=== PATIENT | male | born 1945 | race Caucasian/White ===

== ENCOUNTER 2017-08-29 16:15 | Outpatient (CLI) | payer MEDICARE | END 2017-08-29 16:16 | disposition critical access hospital (66) | LOC: EMS 16:15 | PROVIDERS: ATTEND Surgery | DX: R41.82 Altered mental status, unspecified (principal); R03.0 Elevated blood-pressure reading, without diagnosis of hypertension | CPT/HCPCS: A0425; A0427 ==

== ENCOUNTER 2017-08-29 16:30 | Inpatient (IN) | payer MEDICARE, OTHER ==
[2017-08-29 16:48] LABS: BILIRUBIN,URINE NEGATIVE (NEGATIVE); GLUCOSE, URINE (UA) NEGATIVE (NEGATIVE); KETONES,URINE (UA) NEGATIVE (NEGATIVE); LEUKOCYTE ESTERASE, URINE NEGATIVE (NEGATIVE); NITRITE,URINE NEGATIVE (NEGATIVE); OCCULT BLOOD,URINE NEGATIVE (NEGATIVE); PROTEIN,URINE NEGATIVE (NEGATIVE); UROBILINOGEN,URINE 0.2 (NORMAL) E.U./dL (NORMAL)
[2017-08-29 16:51] LABS: CLARITY,URINE CLEAR (CLEAR)
--- NOTE | 2017-08-29 16:56 | ED Physician Documentation ---
PD HPI FOCAL NEURO - Stated complaint Stated Complaint: ALOC - Chief complaint Chief Complaint: Neuro - History obtained from History obtained from: Patient, Family, EMS - History of Present Illness Timing - onset: Today (72-year-old gentleman with uncontrolled hypertension has never taken blood pressure medicines by choice. He had a history of what sounds like an episode of transient global amnesia in [place] about 15 years ago. Today after a stressful meeting he basically completely and acutely lost his memory. He has no specific complaints other than being kind of scared and not knowing where he is.) Review of Systems Ten Systems: 10 systems reviewed and negative Constitutional: denies: Fever, Chills Cardiac: denies: Chest pain / pressure, Palpitations Respiratory: denies: Dyspnea, Cough PD PAST MEDICAL HISTORY - Past Medical History Past Medical History: Yes Cardiovascular: Hypertension (Not taking any meds for) - Present Medications Home Medications: Ambulatory Orders Medication Instructions Recorded Confirmed No Known Home Medications [No 08/29/17 08/29/17 Known Home Medications] - Allergies Allergies/Adverse Reactions: Allergies Allergy/AdvReac Type Severity Reaction Status Date / Time No Known Drug Allergies Allergy Verified 08/29/17 16:40 - Social History Does the pt smoke?: No Does the pt drink ETOH?: Yes Does the pt have substance abuse?: No - Family History Family history: reports: Non contributory PD ED PE NORMAL - Vitals Vital signs reviewed: Yes - General General: Alert and oriented X 3 (He is actually alert and oriented knows the date but is a little fuzzy on why he is here. He can remember that he had eggs for breakfast and knows his address. 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 Eye Opening: Spontaneous Motor: Obeys Commands Verbal: Oriented GCS Score: 15 - Psych Psych: Normal mood, Normal affect NIHSS - Time Time: 16:45 - Level of Consciousness Level of consciousness: (0) Alert, Keenly responsive LOC Questions: (0) Answers both Q's correct LOC Commands: (0) Performs both correctly - Gaze Best Gaze: (0) Normal - Visual Visual: (0) No loss - Facial Palsy Facial Palsy: (0) Normal, symmetrical movement - Motor Arms (both separate) Motor Arm (right): (0) No drift Motor Arm (left): (0) No drift - Motor Legs (both separate) Motor Leg (right): (0) No drift Motor Leg (left): (0) No drift - Limb Ataxia Limb Ataxia: (0) Absent - Sensory Sensory: (0) Normal - Best Language Best Language: (0) No aphasia - Dysarthria Dysarthria: (0) Normal - Extinction and Inattention (formally neg Extinction and inattention: (0) No abnormality - Total Score/Results Total Score/Result: 0 Results - Vitals Vitals: Vital Signs - 24 hr 08/29/17 16:35 Temperature 36.5 C Heart Rate 64 Respiratory 18 Rate Blood Pressure 226/105 H O2 Saturation 100 Oxygen O2 Source Room air - EKG (time done) 1748 Rate: Rate (enter#) (60) Rhythm: NSR Cobb: Normal Intervals: Normal AL QRS: Normal Ischemia: Normal ST segments Computer interpretation: Agree with computer - Labs Labs: Laboratory Tests 08/29/17 08/29/17 08/29/17 14:50 17:24 17:24 WBC 7.3 RBC 5.56 Hgb 16.9 Hct 51.6 MCV 92.8 MCH 30.4 MCHC 32.7 RDW 13.0 Plt Count 211 MPV 9.0 Neut # (Auto) 5.3 Lymph # (Auto) 1.2 L [place] # (Auto) 0.7 Eos # (Auto) 0.1 Baso # (Auto) 0.1 Absolute Nucleated RBC 0.00 Nucleated RBC % 0.0 Sodium 138 Potassium 3.6 Chloride 103 Carbon Dioxide 27 Anion Gap 8.0 BUN 13 Creatinine 1.2 Estimated GFR (MDRD) 60 L Glucose 105 H Calcium 9.0 Total Bilirubin 0.8 AST 20 ALT 18 Alkaline Phosphatase 61 Total Protein 7.0 Albumin 4.2 Globulin 2.8 Albumin/Globulin Ratio 1.5 Lipase 25 Urine Color LT. YELLOW Urine Clarity CLEAR Urine pH 7.0 Ur Specific Purlear 1.015 Urine Protein NEGATIVE Urine Glucose (UA) NEGATIVE Urine Ketones NEGATIVE Urine Occult Blood NEGATIVE Urine Nitrite NEGATIVE Urine Bilirubin NEGATIVE Urine Urobilinogen 0.2 (NORMAL) Ur Leukocyte Esterase NEGATIVE Ur Microscopic Review NOT INDICATED Urine Culture Comments NOT INDICATED - Rads (name of study) CT Head Radiology: EMP read contemporaneously (normal) PD MEDICAL DECISION MAKING - ED course ED course: 72-year-old gentleman who presents with a history and physical examination consistent with Transient global amnesia. He had a normal head CT and unremarkable labs here. He did agree to take some blood pressure medicine and was started on lisinopril. His stroke scale is negative but he was persistently having memory difficulties in the department and did not know why he was here. Call the hospitalist for observation at 6:10 PM. - Sepsis Event Vital Signs: Vital Signs - 24 hr 08/29/17 16:35 Temperature 36.5 C Heart Rate 64 Respiratory 18 Rate Blood Pressure 226/105 H O2 Saturation 100 Oxygen O2 Source Room air Departure - Departure Disposition: ED Place in Observation Clinical Impression: Transient global amnesia Condition: Stable
[2017-08-29 17:32] LABS: BASOPHILS # (AUTO) 0.1 10^3/uL (0.0-0.1); BASOPHILS % (AUTO) 1.1 %; EOSINOPHILS # (AUTO) 0.1 10^3/uL (0.0-0.7); EOSINOPHILS % (AUTO) 0.9 %; HGB - HEMOGLOBIN 16.9 g/dL (14.0-18.0); LYMPHOCYTES # (AUTO) 1.2 10^3/uL (1.5-3.5); LYMPHOCYTES % (AUTO) 16.5 %; MEAN CORPUSCULAR HEMOGLOBIN 30.4 pg (27.0-31.0); MEAN CORPUSCULAR HGB CONC 32.7 g/dL (32.0-36.0); MEAN CORPUSCULAR VOLUME 92.8 fL (80.0-94.0); MONOCYTES # (AUTO) 0.7 10^3/uL (0.0-1.0); NEUTROPHILS # (AUTO) 5.3 10^3/uL (1.5-6.6); NEUTROPHILS % (AUTO) 72.5 %; PLT - PLATELET COUNT 211 10^3/uL (130-450); RED BLOOD COUNT 5.56 10^6/uL (4.70-6.10); WHITE BLOOD COUNT 7.3 x10^3/uL (4.8-10.8)
[2017-08-29 17:44] LABS: ALBUMIN 4.2 g/dL (3.2-5.5); ALBUMIN/GLOBULIN RATIO 1.5 (1.0-2.2); BILIRUBIN,TOTAL 0.8 mg/dL (0.2-1.0); CREATININE 1.2 mg/dL (0.6-1.2)
--- NOTE | 2017-08-29 17:54 | CT Report ---
Procedure Date: 08/29/2017 Accession Number: [id number] / [id number] Procedure: CT - Head W/O CPT Code: FULL RESULT: EXAM: CT HEAD EXAM DATE: 08/29/2017 05:34 PM. CLINICAL HISTORY: Confusion COMPARISON: None. TECHNIQUE: Multiaxial CT images were obtained from the foramen magnum to the vertex. Reformats: Coronal. IV contrast: None. In accordance with CT protocol optimization, one or more of the following dose reduction techniques were utilized for this exam: automated exposure control, adjustment of mA and/or KV based on patient size, or use of iterative reconstructive technique. FINDINGS: Parenchyma: No intraparenchymal hemorrhage. No evidence of mass, midline shift, or CT findings of infarction. Garcia-white differentiation is distinct. Extraaxial Spaces: Normal for age. No subdural or epidural collections identified. Ventricles: Normal in size and position. Sinuses and Orbits: Imaged paranasal sinuses, orbits, and mastoids show no significant abnormality. Bones: No evidence of fracture or calvarial defect. Other: None. IMPRESSION: No acute intracranial CT abnormality. RADIA
[2017-08-29] MEDS ORDERED: LISINOPRIL 5 MG TABLET PO STA (18:07)
[2017-08-29] MEDS ORDERED: ACETAMINOPHEN 325 MG TABLET PO PRN (19:53)
[2017-08-29] MEDS ORDERED: SODIUM CHLORIDE FLUSH 0.9% 10 ML SYRINGE IVP PRN (19:53)
[2017-08-29] MEDS ORDERED: amLODIPine 5 MG TABLET PO STA (19:58)
[2017-08-29] MEDS: D5.45NS W/20 MEQ KCL 1,000 ML IV SCH (21:32)
[2017-08-29] MEDS: SODIUM CHLORIDE FLUSH 0.9% 10 ML SYRINGE IVP SCH (21:32)
--- NOTE | 2017-08-29 22:50 | HISTORY & PHYSICAL EXAMINATION ---
Chief Complaint - Chief Complaint Chief Complaint: Altered level of consciousness History of Present Illness - Admitted From Admitted From:: Home - History Obtained From History obtained from: Patient, patient's , ED physician Exam Limitations: Patient has very poor memory of the last few hours - History of Present Illness HPI Comment/Other: Mr. 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 Of note is that the patient has a long-standing history of hypertension but refuses to take any antihypertensive medications. Today he was having a very important conference call when he began to show signs of altered level of consciousness. His notes that 15 years ago he had a similar incident during a very high stress period of his life and was diagnosed with transient global amnesia at that time. Today the patient says he feels like he is having a dream and has very little memory of the preceding 3 or 4 hours. His notes that he does not remember that she broke her toe a couple of months ago. He is otherwise oriented to person place and time. A CAT scan of his brain was negative for any acute pathology and there are not any significant findings in the patient's lab data thus far. We will admit him to medical surgical bed, place him on telemetry , correct any electrolyte abnormalities, and obtain an echocardiogram, carotid ultrasound, and MRI of his brain tomorrow. History - Past Medical History Cardiovascular: reports: Hypertension Respiratory: reports: None Neuro: reports: Other Endocrine/Autoimmune: reports: None GI: reports: GERD : reports: None HEENT: reports: None Psych: reports: None Musculoskeletal: reports: None Derm: reports: None MRSA Hx?: No Other Past Medical History: TGA, seasonal allergies - Past Surgical History General: reports: Appendectomy HEENT: reports: Tonsil/Adenoidectomy - Family & Social History Family History: Mother: , Alzheimer's Disease (age 93), Father: , Cancer (Father of lung cancer at age 72. Brother at age 67 of multiple myeloma), Brother: , Cancer Living arrangement: At home Living Situation: With spouse/s.o. - Substance History Use: Uses substance without health or social issues: Alcohol Abuse: Recurrent use of substance despite neg consequences: NONE Dependence: Experiences withdrawal or developed tolerances: NONE - POLST Patient has POLST: Yes POLST Status: DNR Meds/Allgy - Home Medications Home Medications: Ambulatory Orders Medication Instructions Recorded Confirmed Cyanocobalamin (Vitamin B-12) 500 mcg PO DAILY 08/29/17 08/29/17 [Vitamin B-12] Omeprazole 20 mg PO 08/29/17 - Allergies Allergies/Adverse Reactions: Allergies Allergy/AdvReac Type Severity Reaction Status Date / Time No Known Drug Allergies Allergy Verified 08/29/17 16:40 Review of Systems - Constitutional Constitutional: denies: Fatigue, Fever, Chills, Weakness, Night sweats - Eyes Eyes: denies: Pain, Irritation, Amaurosis, Blurred vision - Ears, Nose & Throat Ears, Nose & Throat: denies: Ear pain, Hearing loss, Hearing aids, Tinnitus, Vertigo, Nasal pain, Nasal discharge, Nosebleeds - Cardiovascular Cariovascular: denies: Palpitations, Chest pain, Edema, Syncope - Respiratory Respiratory: denies: Cough, Sputum production, Wheezing, Snoring, Orthopnea - Gastrointestinal Gastrointestinal: denies: Abdominal pain, Abdominal distention, Constipation, Diarrhea, Change in bowel habits, Rectal bleeding - Genitourinary Genitourinary: denies: Dysuria, Frequency, Urgency - Musculoskeletal Musculoskeletal: denies: Muscle pain, Back pain, Muscle aches, Stiffness - Integumentary Integumentary: denies: Rash, Pruritis, Lesions, Dryness - Neurological Neurological: reports: Memory problems. denies: General weakness, Focal weakness, Headache, Dizziness - Psychiatric Psychiatric: denies: Depression, Anxiety, Suicidal, Hallucinations - Endocrine Endocrine: denies: Polyuria, Polydypsia, Polyphagia - Hematologic/Lymphatic Hematologic/Lymphatic: denies: Anemia, Bruising, Petechiae, Lymphadenopathy - All Other Systems All Other Systems: reports: Reviewed and negative Exam - Vital Signs Reviewed Vital Signs: Yes Vital Signs: Vital Signs x48h Temp Pulse Pulse Resp BP BP Pulse Ox 08/29/17 22:23 69 169/101 H 08/29/17 20:45 37 C 66 20 194/91 H 97 08/29/17 20:37 72 21 171/116 H 93 08/29/17 20:11 69 15 190/107 H 94 08/29/17 20:00 74 12 207/103 H 97 - Physical Exam General Appearance: positive: Alert, Mild distress Eyes Bilateral: positive: Normal inspection, PERRL, EOMI, No lid inflammation, Conjunctivae nml, No scleral icterus ENT: positive: ENT inspection nml, Pharynx nml, No signs of dehydration Neck: positive: Nml inspection, Thyroid nml, No JVD, Trachea midline. negative : Thyromegaly Respiratory: positive: Chest non-tender, No respiratory distress, Breath sounds nml. negative: Wheezes, Rales, Rhonchi Cardiovascular: positive: Regular rate & rhythm, No murmur, No gallop Peripheral Pulses: positive: 1+ Abdomen: positive: Non-tender, No organomegaly, Nml bowel sounds, No distention. negative: Guarding, Rebound Back: positive: Nml inspection. negative: CVA tenderness (R), CVA tenderness (L ) Skin: positive: Color nml, No rash, Warm, Dry. negative: Cyanosis Extremities: positive: Non-tender, Full ROM, Nml appearance, No pedal edema Neurologic/Psychiatric: positive: Oriented x3, CN's nml (2-12), Motor nml, Sensation nml, Mood/affect nml Conclusion/Plan - Problem List (1) Transient global amnesia Conclusion/Plan: CT of the head was negative for any acute pathology however the patient currently has neurologic issues at this time. We will work him up as a stroke with an echocardiogram, carotid Doppler, and MRI of his brain. We will monitor the patient overnight for signs of his returning to baseline mentally. (2) Hypertension, uncontrolled Conclusion/Plan: The patient has known he has been hypertensive for many years and has simply refused to take any blood pressure medications. His systolic was over 200 on presentation to the emergency department today. At the same time we must be mindful that if the patient has had a stroke which may only show up on the MRI, he will need permissive hypertension. We will therefore start him on hydrochlorothiazide and low-dose ANJU inhibitor and monitor him closely. If the MRI comes back negative for any acute pathology we will be more aggressive with his blood pressure medications. (3) GERD (gastroesophageal reflux disease) Conclusion/Plan: We will continue patient on his home dosing of omeprazole. (4) Vitamin B12 deficiency Conclusion/Plan: We will continue the patient on his home dosing of cyanocobalamin - Lab Results Lab results reviewed: Yes Fish Bones: 08/29/17 17:24 08/29/17 17:24 - Diagnostic Imaging Results Diagnostic Imaging Results: positive: Final report reviewed Diagnostic Imaging Results Comments: CT HEAD EXAM DATE: 08/29/2017 05:34 PM. CLINICAL HISTORY: Confusion COMPARISON: None. TECHNIQUE: Multiaxial CT images were obtained from the foramen magnum to the vertex. Reformats: Coronal. IV contrast: None. In accordance with CT protocol optimization, one or more of the following dose reduction techniques were utilized for this exam: automated exposure control, adjustment of mA and/or KV based on patient size, or use of iterative reconstructive technique. FINDINGS: Parenchyma: No intraparenchymal hemorrhage. No evidence of mass, midline shift, or CT findings of infarction. Garcia-white differentiation is distinct. Extraaxial Spaces: Normal for age. No subdural or epidural collections identified. Ventricles: Normal in size and position. Sinuses and Orbits: Imaged paranasal sinuses, orbits, and mastoids show no significant abnormality. Bones: No evidence of fracture or calvarial defect. Other: None. IMPRESSION: No acute intracranial CT abnormality. - EKG Results EKG Interpreted Independently: Yes EKG Comparison: Old EKG unavailable EKG Findings: Normal sinus rhythm, rate 60. Core Measures - Anticipated LOS I expect patient to be DC'd or transferred within 96 hours.: Yes - DVT/VTE - Prophylaxis VTE/DVT Device ordered at admit?: Yes
[2017-08-30 06:20] LABS: HGB - HEMOGLOBIN 15.1 g/dL (14.0-18.0); MEAN CORPUSCULAR HGB CONC 33.7 g/dL (32.0-36.0); MEAN CORPUSCULAR VOLUME 92.1 fL (80.0-94.0); MEAN PLATELET VOLUME 8.5 fL (7.4-11.4); RED BLOOD COUNT 4.88 10^6/uL (4.70-6.10); RED CELL DISTRIBUTION WIDTH 13.8 % (12.0-15.0); WHITE BLOOD COUNT 4.9 x10^3/uL (4.8-10.8)
[2017-08-30 06:31] LABS: CALCIUM 8.4 mg/dL (8.5-10.3)
[2017-08-30] MEDS: D5.45NS W/20 MEQ KCL 1,000 ML IV SCH (07:07)
--- NOTE | 2017-08-30 08:20 | Ultrasound Report ---
Procedure Date: 08/30/2017 Accession Number: [id number] / [id number] Procedure: US - Carotid Doppler Complete CPT Code: FULL RESULT: EXAM: CAROTID DOPPLER ULTRASOUND EXAM DATE: 08/30/2017 07:57 AM. CLINICAL HISTORY: Altered level of consciousness/rule out CVA. COMPARISON: None. TECHNIQUE: Real-time sonographic vascular imaging was performed by the athletic shoe designer through the carotid arterial system with a linear transducer utilizing color-flow, Doppler flow and spectral analysis. Multiple manufacturer representative static images were saved for review. FINDINGS: No flow-limiting stenosis in the left or right internal carotid arteries. The vertebral arteries demonstrate antegrade flow. RIGHT ICA/CCA: PSV 1.07, EDV 1.49 CCA Prox: PSV 81.6 cm/s, EDV 10.8 cm/s. CCA Mid: PSV 92.4 cm/s, EDV 13.9 cm/s. CCA Dist: PSV 69.3 cm/s, EDV 14.6 cm/s. ICA Prox: PSV 67.3 cm/s, EDV 16.3 cm/s. ICA Mid: PSV 74.3 cm/s, EDV 21.7 cm/s. ICA Dist: PSV 60.2 cm/s, EDV 17.9 cm/s. ECA Repre: PSV 97.8 cm/s, EDV 9.2 cm/s. Vert Repre: PSV 41.8 cm/s, EDV 13.0 cm/s. LEFT ICA/CCA: PSV 0.64, EDV 0.91 CCA Prox: PSV 128.5 cm/s, EDV 20.2 cm/s. CCA Mid: PSV 128.5 cm/s, EDV 24.8 cm/s. CCA Dist: PSV 104.7 cm/s, EDV 23.0 cm/s. ICA Prox: PSV 60.9 cm/s, EDV 17.9 cm/s. ICA Mid: PSV 67.4 cm/s, EDV 20.9 cm/s. ICA Dist: PSV 63.9 cm/s, EDV 19.1 cm/s. ECA Repre: PSV 122.1 cm/s, EDV 14.7 cm/s. Vert Repre: PSV 42.3 cm/s, EDV 11.4 cm/s. Other: None. IMPRESSION: No hemodynamically significant stenoses. Validated velocity measurements with angiographic measurements and velocity criteria are extrapolated from diameter data as defined by the Society of Radiologists in Ultrasound Consensus Conference Radiology 2003; 229;340-346. RADIA
[2017-08-30] MEDS ORDERED: POTASSIUM CHLORIDE 20 MEQ TABLET PO ONE (08:38)
[2017-08-30] MEDS ORDERED: hydroCHLOROthiazide 25 MG TABLET PO SCH (09:00)
[2017-08-30] MEDS ORDERED: LISINOPRIL 20 MG TABLET PO SCH (09:00)
[2017-08-30] MEDS ORDERED: POLYETHYLENE GLYCOL 3350 17 GM PACKET PO SCH (09:00)
[2017-08-30] MEDS: SODIUM CHLORIDE FLUSH 0.9% 10 ML SYRINGE IVP SCH ×2 (09:34→16:50)
--- NOTE | 2017-08-30 15:16 | Discharge Plan ---
Discharge Plan Disposition: 01 Home, Self Care Condition: Poor Diet: Regular Activity Restrictions: Activity as Tolerated Shower Restrictions: No (fall precaution) Weight Bearing: Full Weight Instruction Topics: TIA, ED HTN Established Additional Instructions or Follow Up instructions: You may follow up your PCP in one week. Should your symptoms return or worsen, you may present ER or call 911 for help. No Smoking: If you smoke, Please STOP! Call for help. Follow-up with: Ghada Sommers PA [Primary Care Provider] -
--- NOTE | 2017-08-30 15:23 | DISCHARGE SUMMARY ---
Discharge Summary Discharge Date: 08/30/17 Discharging Provider: TAVERAS Primary Care Provider: Dr. Sommers Condition at Discharge: Poor Discharge Disposition: 01 Home, Self Care Discharge Facility Name: home - DIAGNOSES Admission Diagnoses: (1) Transient global amnesia (2) Hypertension, uncontrolled (3) GERD (gastroesophageal reflux disease) (4) Vitamin B12 deficiency Discharge Diagnoses with Status of Each Condition: (1) Transient global amnesia resolved. pt's CT and MRI of head, US of carotid, ECHO, reveals no acute finding. (2) Hypertension, uncontrolled controlled and stable. pt state his BP was controlled by his home meds before, but after he researched, he believed he does not need BP medications, and believed there was no correlation between BP control and stroke. Then he did not take any BP medications at home. Discussed and consult with pt the importance of medial compliance. Pt state he will follow up his PCP closely to control his BP. (3) GERD (gastroesophageal reflux disease) stable, follow up PCP (4) Vitamin B12 deficiency resume home meds, follow up PCP - HPI History of Present Illness: refer from Dr. cook's HPI for pt as the following: Mr. 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 Of note is that the patient has a long-standing history of hypertension but refuses to take any antihypertensive medications. Today he was having a very important conference call when he began to show signs of altered level of consciousness. His notes that 15 years ago he had a similar incident during a very high stress period of his life and was diagnosed with transient global amnesia at that time. Today the patient says he feels like he is having a dream and has very little memory of the preceding 3 or 4 hours. His notes that he does not remember that she broke her toe a couple of months ago. He is otherwise oriented to person place and time. A CAT scan of his brain was negative for any acute pathology and there are not any significant findings in the patient's lab data thus far. We will admit him to medical surgical bed, place him on telemetry , correct any electrolyte abnormalities, and obtain an echocardiogram, carotid ultrasound, and MRI of his brain tomorrow. - ALLERGIES Allergies/Adverse Reactions: Allergies Allergy/AdvReac Type Severity Reaction Status Date / Time No Known Drug Allergies Allergy Verified 08/29/17 16:40 - MEDICATIONS Home Medications: Ambulatory Orders Medication Instructions Recorded Confirmed Cyanocobalamin (Vitamin B-12) 1,000 mcg PO DAILY 08/29/17 08/30/17 [Vitamin B-12] Omeprazole 20 mg PO QDAC 08/29/17 08/30/17 Losartan [Cozaar] 50 mg PO DAILY 08/30/17 08/30/17 Metoprolol Tartrate [Lopressor] 25 mg PO BID 08/30/17 08/30/17 - PHYSICAL EXAM AT DISCHARGE General Appearance: positive: No acute distress, Alert. negative: Lethargic Eyes Bilateral: positive: Normal inspection, PERRL, No lid inflammation, Conjunctivae nml ENT: positive: ENT inspection nml, Pharynx nml, No signs of dehydration. negative: Purulent nasal drainage, Pharyngeal erythema, Oral lesions Neck: positive: Nml inspection, Thyroid nml, No JVD, Trachea midline. negative : Thyromegaly, Lymphadenopathy (R), Lymphadenopathy (L), Stiff neck, Carotid bruit, Swelling/bruising, Tracheal deviation Respiratory: positive: Chest non-tender, No respiratory distress, Breath sounds nml. negative: Wheezes, Rales, Rhonchi Cardiovascular: positive: Regular rate & rhythm, No murmur, No gallop. negative : Irregularly irregular, Extrasystoles, Tachycardia, Bradycardia, Systolic murmur, Diastolic murmur Peripheral Pulses: positive: 2+ Abdomen: positive: Non-tender, No organomegaly, Nml bowel sounds, No distention. negative: Tenderness, Guarding, Rebound Back: positive: Nml inspection. negative: CVA tenderness (R), CVA tenderness (L ) Skin: positive: Color nml, No rash, Warm, Dry. negative: Cyanosis, Diaphoresis , Pallor, Skin rash Extremities: positive: Non-tender, Full ROM, Nml appearance. negative: Calf tenderness, Joint swelling, Khadijah's sign/cords Neurologic/Psychiatric: positive: Oriented x3, Motor nml, Sensation nml, Mood/ affect nml. negative: Weakness, Sensory loss, Facial droop, Slurred/abnml speech, Depressed mood/affect - LABS Result Diagrams: 08/30/17 06:14 08/30/17 06:14 - FOLLOW UP Follow Up: You may follow up your PCP in one week. Should your symptoms return or worsen, you may present ER or call 911 for help. - TIME SPENT Time Spent in Discharge (Minutes): 50
[2017-08-30 16:31] VITALS: BP 122/72
--- NOTE | 2017-08-30 18:50 | MRI Report ---
Procedure Date: 08/30/2017 Accession Number: [id number] / [id number] Procedure: MRI - Brain W/O CPT Code: FULL RESULT: EXAM: MRI BRAIN WITHOUT CONTRAST EXAM DATE: 08/30/2017 08:55 AM. CLINICAL HISTORY: 72-year-old male. ALTERED LEVEL OF CONSCIOUSNESS. HX TIAS. COMPARISON: HEAD W/O 08/29/2017. TECHNIQUE: Multiplanar, multisequence T1-weighted and fluid-sensitive MR sequences of the brain were performed. Sequences optimized for routine evaluation. Other: None. IV Contrast: None. FINDINGS: Brain Volume: Normal for age. Parenchyma/Dura: No mass, acute infarct or hemorrhage. Few punctate FLAIR hyperintense subcortical and deep white matter lesions with history of hemispheres bilaterally. No parenchymal foci susceptibility artifact. Ventricles/Cisterns: No hydrocephalus. No abnormal extra-axial fluid collection or hemorrhage. Orbits: Status post bilateral lens replacement surgery. The visualized orbits are otherwise unremarkable. Sella Turcica: The pituitary gland, cavernous sinuses, suprasellar cistern and optic chiasm are unremarkable. IAC: Symmetric and unremarkable. Vasculature: Normal signal flow void is seen in the major arterial structures at the skull base. Sinuses: No acute appearing sinus disease. Bones: No focal pathologic appearing marrow signal changes. Other: None. IMPRESSION: 1. No MRI evidence of acute intracranial abnormality. Specifically, no evidence of acute or subacute infarct, acute intracranial hemorrhage, mass, midline shift, or hydrocephalus. 2. Few punctate subcortical and deep white matter T2/FLAIR hyperintensities, nonspecific, and can be seen with the entire gamut of white matter conditions, including migraine headaches and as sequela of chronic microangiopathy. RADIA
== END 2017-08-30 17:10 | disposition home or self-care (01) | DRG 72 ==
LOC: EDUNIT# → ED 16:30 → MS2 19:53 → MS3 20:49
PROVIDERS: ADMIT Hospitalist; ATTEND Nurse Practitioner Gerontology
DX: G45.4 Transient global amnesia (principal); T46.5X6A Underdosing of other antihypertensive drugs, initial encounter; I10 Essential (primary) hypertension; K21.9 Gastro-esophageal reflux disease without esophagitis; E53.8 Deficiency of other specified B group vitamins; Z66 Do not resuscitate; Z91.128 Patient's intentional underdosing of medication regimen for other reason; Z79.899 Other long term (current) drug therapy
CPT/HCPCS: 36415; 70450; 70551; 80048; 80053; 81001; 81003; 83690; 85025; 85027; 87086; 93005; 93306; 93880; 99284; 99285

== ENCOUNTER 2022-10-16 12:47 | Emergency (ER) | payer MEDICARE ==
--- NOTE | 2022-10-16 13:17 | ED Physician Documentation ---
History of Present Illness - Stated complaint Stated Complaint: FEVER/RT SIDE PX - Chief complaint Chief Complaint: General - History obtained from History obtained from: Patient, Family - Additonal information Additional information: Very healthy 77-year-old gentleman whose had COVID a couple of weeks ago. He developed shaking chills last night and a fever to 100.4 this morning which has responded to acetaminophen. It is associated with a mild right upper quadrant/flank pain. No rash. No respiratory complaints. PD PAST MEDICAL HISTORY - Past Medical History Cardiovascular: Hypertension Respiratory: None Neuro: Other Endocrine/Autoimmune: None GI: GERD : None HEENT: None Psych: None Musculoskeletal: None Derm: None - Past Surgical History General: Appendectomy HEENT: Tonsil/Adenoidectomy - Present Medications Home Medications: Ambulatory Orders Medication Instructions Recorded Confirmed Cyanocobalamin (Vitamin B-12) 1,000 mcg PO DAILY 08/29/17 08/30/17 [Vitamin B-12] Omeprazole 20 mg PO QDAC 08/29/17 08/30/17 Losartan [Cozaar] 50 mg PO DAILY 08/30/17 08/30/17 Metoprolol Tartrate [Lopressor] 25 mg PO BID 08/30/17 08/30/17 - Allergies Allergies/Adverse Reactions: Allergies Allergy/AdvReac Type Severity Reaction Status Date / Time No Known Drug Allergies Allergy Verified 10/16/22 12:56 - Social History Does the pt smoke?: No Smoking Status: Never smoker Does the pt drink ETOH?: Yes Does the pt have substance abuse?: No - POLST Patient has POLST: Yes POLST Status: DNR PD ED PE NORMAL - Vitals Vital signs reviewed: Yes - General General: Alert and oriented X 3, No acute distress - Neck Neck: Supple, no meningeal sign, No bony TTP - Cardiac Cardiac: RRR, No murmur - Respiratory Respiratory: No respiratory distress, Clear bilaterally - Abdomen Abdomen: Normal bowel sounds, Soft, Non tender - Back Back: No CVA TTP - Derm Derm: No rash - Neuro Neuro: Alert and oriented X 3, Normal speech Results - Vitals Vitals: Vital Signs - 24 hr 10/16/22 10/16/22 10/16/22 12:56 13:31 15:13 Temperature 36.8 C Heart Rate 88 71 65 Respiratory 16 15 15 Rate Blood Pressure 150/90 H 158/76 H 125/57 L O2 Saturation 98 94 98 Oxygen O2 Source Room air - Labs Labs: Laboratory Tests 10/16/22 10/16/22 10/16/22 13:16 13:16 13:16 WBC 9.0 RBC 5.65 Hgb 17.2 Hct 51.9 MCV 91.9 MCH 30.4 MCHC 33.1 RDW 12.6 Plt Count 213 MPV 10.1 Neut # (Auto) 6.3 Lymph # (Auto) 1.4 L [place] # (Auto) 1.2 H Eos # (Auto) 0.0 Baso # (Auto) 0.1 Absolute Nucleated RBC 0.00 Nucleated RBC % 0.0 Sodium 137 Potassium 3.9 Chloride 103 Carbon Dioxide 27 Anion Gap 7.0 BUN 18 Creatinine 1.2 Estimated GFR (MDRD) 59 L Glucose 91 Lactic Acid 1.4 Calcium 9.8 Total Bilirubin 1.3 H AST 14 ALT 11 Alkaline Phosphatase 70 Total Protein 7.3 Albumin 4.5 Globulin 2.8 Albumin/Globulin Ratio 1.6 Urine Color Urine Clarity Urine pH Ur Specific [place] Urine Protein Urine Glucose (UA) Urine Ketones Urine Occult Blood Urine Nitrite Urine Bilirubin Urine Urobilinogen Ur Leukocyte Esterase Urine RBC Urine WBC Ur Squamous Epith Cells Urine Bacteria Urine Culture Comments 10/16/22 13:24 WBC RBC Hgb Hct MCV MCH MCHC RDW Plt Count MPV Neut # (Auto) Lymph # (Auto) [place] # (Auto) Eos # (Auto) Baso # (Auto) Absolute Nucleated RBC Nucleated RBC % Sodium Potassium Chloride Carbon Dioxide Anion Gap BUN Creatinine Estimated GFR (MDRD) Glucose Lactic Acid Calcium Total Bilirubin AST ALT Alkaline Phosphatase Total Protein Albumin Globulin Albumin/Globulin Ratio Urine Color YELLOW Urine Clarity CLEAR Urine pH 6.5 Ur Specific [place] 1.010 Urine Protein NEGATIVE Urine Glucose (UA) NEGATIVE Urine Ketones NEGATIVE Urine Occult Blood NEGATIVE Urine Nitrite NEGATIVE Urine Bilirubin NEGATIVE Urine Urobilinogen 0.2 (NORMAL) Ur Leukocyte Esterase NEGATIVE Urine RBC 0-5 Urine WBC 0-3 Ur Squamous Epith Cells RARE Squamous Urine Bacteria None Seen Urine Culture Comments NOT INDICATED - Rads (name of study) CT A/P Relevant Findings:: Final report received, EMP independent interpretation of test PD Medical Decision Making - ED course ED course: 77-year-old gentleman with shaking chills and fever overnight, and some right upper quadrant pain. Work-up here demonstrates normal CBC, CMP, lactate and urinalysis. CT was some incidental findings which were discussed with patient but nothing that would cause his current symptoms. No shingles rash. Given his 's recent COVID positivity I offered and recommended COVID testing which he refused. Departure - Departure Disposition: 01 Home, Self Care Clinical Impression: Fever, RUQ pain Condition: Good Record reviewed to determine appropriate education?: Yes Instructions: ED Fever Unconf Cause Comments: The cause of your illness is not quite clear. CT scan and labs were relatively unremarkable with the exception of fatty liver and diverticulosis without dive rticulitis. Return if worsening or if not better over the next few days. You can take Tylenol as needed for the fever. Return if you develop a rash, but as discussed there is no shingles rash now. Discharge Date/Time: 10/16/22 15:14
[2022-10-16 13:22] LABS: BASOPHILS # (AUTO) 0.1 10^3/uL (0.0-0.1); BASOPHILS % (AUTO) 0.7 %; EOSINOPHILS % (AUTO) 0.4 %; HCT - HEMATOCRIT 51.9 % (42.0-52.0); HGB - HEMOGLOBIN 17.2 g/dL (14.0-18.0); LYMPHOCYTES # (AUTO) 1.4 10^3/uL (1.5-3.5); LYMPHOCYTES % (AUTO) 15.9 %; MEAN CORPUSCULAR HEMOGLOBIN 30.4 pg (27.0-31.0); MEAN CORPUSCULAR HGB CONC 33.1 g/dL (32.0-36.0); MEAN CORPUSCULAR VOLUME 91.9 fL (80.0-94.0); MEAN PLATELET VOLUME 10.1 fL (7.4-11.4); MONOCYTES # (AUTO) 1.2 10^3/uL (0.0-1.0); MONOCYTES % (AUTO) 12.7 %; NEUTROPHILS # (AUTO) 6.3 10^3/uL (1.5-6.6); PLT - PLATELET COUNT 213 10^3/uL (130-450); RED BLOOD COUNT 5.65 10^6/uL (4.70-6.10); RED CELL DISTRIBUTION WIDTH 12.6 % (12.0-15.0)
[2022-10-16 13:33] LABS: BILIRUBIN,URINE NEGATIVE (NEGATIVE); GLUCOSE, URINE (UA) NEGATIVE (NEGATIVE); KETONES,URINE (UA) NEGATIVE (NEGATIVE); LEUKOCYTE ESTERASE, URINE NEGATIVE (NEGATIVE); NITRITE,URINE NEGATIVE (NEGATIVE); OCCULT BLOOD,URINE NEGATIVE (NEGATIVE); PH,URINE 6.5 PH (5.0-7.5); PROTEIN,URINE NEGATIVE (NEGATIVE); UROBILINOGEN,URINE 0.2 (NORMAL) E.U./dL (NORMAL)
[2022-10-16 13:37] LABS: ALBUMIN 4.5 g/dL (3.2-5.5); ALBUMIN/GLOBULIN RATIO 1.6 (1.0-2.2); BILIRUBIN,TOTAL 1.3 mg/dL (0.2-1.0); CALCIUM 9.8 mg/dL (8.5-10.3); CREATININE 1.2 mg/dL (0.6-1.3); POTASSIUM 3.9 mmol/L (3.5-4.5); TOTAL PROTEIN 7.3 g/dL (6.4-8.9)
[2022-10-16 13:40] LABS: BACTERIA,URINE None Seen /HPF (None Seen); CLARITY,URINE CLEAR (CLEAR); RBC,URINE 0-5 /HPF (0-5); SQUAMOUS EPITHELIAL CELL,UR RARE Squamous (<= Few); WBC,URINE 0-3 /HPF (0-3)
[2022-10-16] MEDS ORDERED: iohexoL-300 100 ML VIAL IVP ONE (14:31)
--- NOTE | 2022-10-16 14:47 | CT Report ---
PROCEDURE: ABDOMEN/PELVIS W INDICATIONS: IV only, right abdominal pain and fever CONTRAST: 100ml omni 300 TECHNIQUE: After the administration of IV contrast, 5 mm thick sections acquired from the diaphragms to the symp hysis. 5 mm thick coronal and sagittal reformats were acquired. For radiation dose reduction, the f ollowing was used: automated exposure control, adjustment of mA and/or kV according to patient size. COMPARISON: None FINDINGS: Image quality: Excellent. Lung bases and heart: Unremarkable. Liver: No solid mass. Geographic fatty infiltration near the falciform ligament. Gallbladder and biliary tree: No radiopaque stones or wall thickening. No biliary dilation. Spleen: No splenomegaly. Pancreas: No pancreatic ductal dilation. Adrenals: No adrenal nodule. Kidneys and ureters: No hydronephrosis. No renal cystic lesion which requires follow up. No solid mas s. Bowel and peritoneum: No bowel distension. No pathologic free fluid. Diverticulosis without evidence of diverticulitis. The appendix is not definitively identified however there are no pericecal inflamm atory changes. Lymph nodes: No central or retroperitoneal adenopathy. Vessels: No infrarenal aortic aneurysm. Scattered atherosclerotic plaques. PELVIS Reproductive organs: Unremarkable. Bladder: No abnormal wall thickening, accounting for underdistension. Pelvic lymph nodes: No pelvic adenopathy by size criteria. Bones: No aggressive osseous abnormality. Other: No significant ventral or inguinal hernia. IMPRESSION: No acute findings to explain patient's symptoms. Hepatic steatosis. Diverticulosis without evidence of acute diverticulitis. Reviewed by: Chriss Harrington MD on 10/16/2022 1:46 PM AKDT Approved by: Chriss Harrington MD on 10/16/2022 1:46 PM AKDT Station ID: [id number]
[2022-10-16 15:18] VITALS: BP 125/57; O2SAT 98
== END 2022-10-16 15:14 | disposition home or self-care (01) ==
LOC: ED 12:47
DX: R50.9 Fever, unspecified (principal); R10.11 Right upper quadrant pain; I10 Essential (primary) hypertension
CPT/HCPCS: 36415; 74177; 80053; 81001; 83605; 85025; 87040; 99283; 99284; Q9967; 87086

== ENCOUNTER 2023-08-19 10:36 | Outpatient (CLI) | payer MEDICARE ==
--- NOTE | 2023-08-19 11:49 | XRAY Report ---
PROCEDURE: Chest 2V INDICATIONS: CHRONIC COUGH TECHNIQUE: 2 views of the chest were acquired. COMPARISON: 10/17/2022. FINDINGS: Surgical changes and devices: None. Lungs and pleura: No pleural effusions or pneumothorax. Lungs are clear. Mild hyperinflation sugges ts probable emphysematous change. Mediastinum: Mediastinal contours appear normal. Heart size is normal. Bones and chest wall: No suspicious bony lesions. Overlying soft tissues appear unremarkable. IMPRESSION: Probable emphysematous change. No acute pulmonary process. Reviewed by: Noel Grijalva MD on 08/19/2023 11:48 AM PDT Approved by: Noel Grijalva MD on 08/19/2023 11:48 AM PDT Station ID: [id number]
== END 2023-08-19 10:37 | disposition home or self-care (01) ==
LOC: DI 10:36
PROVIDERS: ATTEND Registered Nurse
DX: R05.3 Chronic cough (principal)

== ENCOUNTER 2023-08-26 13:07 | Outpatient (CLI) | payer MEDICARE ==
[2023-08-26] MEDS: ALBUTEROL 1 PUFF INH STA (16:03)
== END 2023-08-26 13:08 | disposition home or self-care (01) ==
LOC: RT 13:07
PROVIDERS: ATTEND Registered Nurse
DX: R05.3 Chronic cough (principal)
CPT/HCPCS: 94060; 94727; 94729